=== PATIENT | female | born 1990 | race Caucasian/White ===

== ENCOUNTER 2019-04-23 12:45 | Emergency (ER) | payer SELFPAY ==
[2019-04-23] MEDS ORDERED: morphine CARPU-JECT 4 MG/1 ML DISP.SYRIN IVPUSH ONE ×2 (12:55→13:47)
[2019-04-23] MEDS ORDERED: SODIUM CHLORIDE 1,000 ML IV STA (12:55)
[2019-04-23] MEDS ORDERED: ONDANSETRON 4 MG/2 ML VIAL IVPUSH ONE (12:56)
--- NOTE | 2019-04-23 12:59 | PDOC ---
History of Present Illness - General Chief Complaint: Pain Stated Complaint: RT ABD PAIN Time Seen by Provider: 04/23/19 12:49 History Source: Patient Exam Limitations: No Limitations - History of Present Illness Travel History: No Initial Comments: 04/23/19 12:57 29 y/o female with hx of endometriosis and small bowel obstruction and MS, presents to ER with RLQ pain that started this morning. Patient states that she tried taking her Dilaudid and Zofran but was unable to due to her vomiting this morning. No fever or chills. Denies dysuria or back pain. No SOB or chest pain. No fall or trauma. Patient states that she takes Lupron, last one on Apr 03 and also interferon. Denies , discharge or vaginal bleeding. 04/23/19 14:34 Pain Radiation: reports: no radiation Past History - Past Medical History Allergies/Adverse Reactions: Allergies Allergy/AdvReac Type Severity Reaction Status Date / Time NSAIDS (Non-Steroidal Allergy Severe Swelling Verified 04/23/19 12:50 Anti-Inflamma amoxicillin Allergy Rash Verified 04/23/19 12:50 bee venom protein (honey bee) Allergy Swelling Verified 04/23/19 12:50 Home Medications: Ambulatory Orders Interferon Beta-1B [Betaseron] 0.3 mg IV ASDIR 04/23/19 Leuprolide Acetate [Lupron -] 1 mg SQ ASDIR 04/23/19 Review of Systems - Review of Systems Able to Perform ROS?: Yes Is the patient limited Swedish proficient: No Constitutional: No: Chills, Fever Respiratory: No: Cough, Shortness of Breath Cardiac (ROS): No: Chest Pain ABD/GI: Yes: Nausea, Vomiting. No: Diarrhea : No: Dysuria, Discharge, Frequency Musculoskeletal: No: Back Pain All Other Systems: Reviewed and Negative *Physical Exam - Physical Exam General Appearance: Yes: Nourished, Appropriately Dressed, Apparent Distress, Moderate Distress HEENT: positive: EOMI, LILIANA, Normal ENT Inspection, Normal Voice, Pharynx Normal Neck: positive: Trachea midline, Normal Thyroid, Supple. negative: Tender, Rigid, Carotid bruit Respiratory/Chest: positive: Lungs Clear, Normal Breath Sounds. negative: Chest Tender, Respiratory Distress Cardiovascular: positive: Regular Rhythm, Regular Rate, S1, S2. negative: Edema , JVD, Murmur Vascular Pulses: Femoral (R): 4+, Femoral (L): 4+, Carotid (R): 4+, Carotid (L) : 4+, Dorsalis-Pedis (R): 4+, Doralis-Pedis (L): 4+ Female Pelvic Exam: positive: other (patient defers at this time, risks and benefits explained to pt) Gastrointestinal/Abdominal: positive: Normal Bowel Sounds, Tender (RLQ and RUQ tenderness, no LLQ or LUQ tenderness +BS, no mid epigastric tenderness), Flat, Soft. negative: Organomegaly, Pulsatile Mass Lymphatic: negative: Adenopathy, Tenderness, Other Musculoskeletal: positive: Normal Inspection. 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 II-XII NML intact, Fully Oriented, Alert, Normal Mood/ Affect, Normal Response, Motor Strength 10/09 ED Treatment Course - LABORATORY CBC & Chemistry Diagram: 04/23/19 13:16 04/23/19 13:16 ED Progress Note - Progress Note Progress Note: 04/23/19 13:00 Patient with RLQ pain Will obtain labs and CT, IVF and pain meds to be given 04/23/19 14:28 Patient signed waiver to have CT done, denies , has not had period in 3 years Patient states that she is not having contractions or bleeding On Lupron and Interferon Last given Lupron Apr 03 and pt states no pregnacy done at that time Unable to give urine sample US ordered but patient wants to sign out AMA, risks and benefits explained to pt Possible abruption, , contractions, etc Pt still insists her surgeon wanted CT and she wishes to leave. 04/23/19 14:52 Discharge - Discharge Information Problems reviewed: Yes Clinical Impression/Diagnosis: Abdominal pain Qualifiers: Abdominal location: right lower quadrant Qualified Code(s): R10.31 - Right lower quadrant pain Condition: Guarded Disposition: AGAINST MEDICAL ADVICE - Admission No - Follow up/Referral - Patient Discharge Instructions Patient Printed Discharge Instructions: DI for Abdominal Pain-Adult, DI for Abdominal Pain -- Early Additional Instructions: Please go to your [facility] Advised to transfer to [facility] for US, patient signed out AMA - Post Discharge Activity
[2019-04-23] MEDS ORDERED: ONDANSETRON 4 MG/2 ML VIAL ONE (13:02)
[2019-04-23] MEDS ORDERED: morphine SULFATE 4 MG/ML VIAL ONE ×2 (13:02→13:47)
[2019-04-23 13:07] VITALS: BP 145/100; PULSE 109; TEMP 98.2
[2019-04-23 13:48] LABS: BILIRUBIN,TOTAL 0.1 mg/dl (0.2-1); CALCIUM 9.1 mg/dl (8.5-10); CREATININE 0.3 mg/dl (0.55-1.3)
[2019-04-23 14:02] LABS: BASO % 0.2 % (0-2.0); HEMOGLOBIN 8.3 GM/dl (10.7-15.3)
[2019-04-23 14:05] LABS: EOS % 0.9 % (0-4.5); HEMATOCRIT 27.9 % (32.4-45.2); LYMPH % 13.1 % (8-40); MCHC 29.8 g/dl (32.0-36.0); MEAN CELL VOLUME 73.7 fl (80-96); MEAN PLT VOLUME 11.2 fl (7.5-11.1); MONO % 4.7 % (3.8-10.2); NEUT % 81.1 % (42.8-82.8); PLATELET COUNT 283 K/MM3 (134-434); RBC 3.78 M/mm3 (3.60-5.2); RDW 16.8 % (11.6-15.6); WHITE BLOOD COUNT 10.6 K/mm3 (4.0-10.8)
[2019-04-23 14:07] LABS: ADD RBC MORPHOLOGY YES
[2019-04-23 14:21] LABS: POTASSIUM 3.9 mmol/L (3.5-5.1)
[2019-04-23 16:28] LABS: ANISOCYTOSIS 1+; PLATELET ESTIMATE ADEQUATE
== END 2019-04-23 15:08 | disposition left against medical advice (07) ==
LOC: FER 12:45
PROC: 3E033NZ Introduction of Analgesics, Hypnotics, Sedatives into Peripheral Vein, Percutaneous Approach (ICD-10-PCS; principal; 2019-04-23)
PROC: 3E033GC Introduction of Other Therapeutic Substance into Peripheral Vein, Percutaneous Approach (ICD-10-PCS; 2019-04-23)
DX: R10.31 Right lower quadrant pain (principal); Z88.8 Allergy status to other drugs, medicaments and biological substances; N80.9 Endometriosis, unspecified; G35 Multiple sclerosis
CPT/HCPCS: 36415; 74177-TC; 80053; 84702; 84703; 85025; 99283-25; J7030